=== PATIENT | female | born 1990 | race African-American/Black ===

== ENCOUNTER 2016-12-22 18:38 | Emergency (ER) | payer OTHER ==
[~2016-12-22] VITALS: Ht 162.6 cm; Wt 72.6 kg
[~2016-12-22 18:38] MED LIST: ACETAMINOPHEN-1 EAC1 PO; AMOXICILLIN500 M1 PO; APAP500 PO; BACTRIM DS TAB1 EACH PO; DERMOPLAST SPRA56 ML; FLEXERIL PO; HYCET 7.5 MG-3473 ML PO; HYDROCODONE-AP1 EAC6 PO; HYDROCORTISONE30 G9 RE; HYDROXYZINE HCL25 M1 PO; IBUPROFEN 400400 M1 PO; IBUPROFEN 600600 M1 PO; IBUPROFEN 800800 M1 PO; IBUPROFEN 800800 MG PO; IRON SUPPLEMENT PO; KEFLEX500 MG PO; LANOLIN56 GM; MAGIC MOUTHWASH SWISH&SPIT; MEDROLDOSEPACK PO; NAPROSYN500 MG PO; NOHOMEMEDICATIONS; NORCO 5-325 TA1 EACH PO; PENICILLIN VK500 M1 PO; PREDNISONE 20 M20 M1 PO; PREDNISONE 20 M20 MG PO; PREDNISONE50 MG PO; PRENATAL; PRENATAL PO; PRENATAL VITAMIN PO; TESSALON PERLE100 MG PO; TRINATE TABLET1 TAB PO; TUCKS MEDICATE1 EAC1; ULTRAM 50MG TAB50 MG PO; VENTOLIN HFA 1818 GM INH; ZOFRAN ODT4 MG PO; ZPAK PO
[2016-12-22] MEDS ORDERED: NOHOMEMEDICATIONS (18:45)
== END 2016-12-22 20:32 | disposition home or self-care (01) ==
LOC: ER 18:38
DX: R51 Headache (principal); J45.909 Unspecified asthma, uncomplicated; Z88.8 Allergy status to other drugs, medicaments and biological substances; Z87.891 Personal history of nicotine dependence